=== PATIENT | male | born 1955 | race Caucasian/White ===

== ENCOUNTER 2017-10-02 15:24 | Observation (INO) ==
--- NOTE | 2017-10-02 15:49 | Emergency Department Note ---
Disposition Clinical Impression: Elevated troponin, End stage renal disease on dialysis, Pericardial effusion Chest pain Qualifiers: Chest pain type: precordial pain Qualified Code(s): R07.2 - Precordial pain Pericarditis Qualifiers: Pericarditis type: unspecified type Chronicity: acute Qualified Code(s): I30.9 - Acute pericarditis, unspecified Disposition: Admitted As Inpatient Condition: Fair Referrals: Reji Diaz DO [Primary Care Provider] - Forms: ED Satisfaction Letter Time of Disposition: 20:46 Chest Pain HPI - General Chief Complaint: ED Chest Pain Stated Complaint: Chest Pain Time Seen by Provider: 10/02/17 15:37 Source: patient, family Limitations: no limitations Vital Signs Reviewed: Yes Nursing Notes Reviewed: Yes - History of Present Illness HPI Narrative: 62-year-old male presents ED because of chest pain. He has had chest pain for the past 2 days that worsened today. Pain is worsened with deep breathing. Unable to determine of exertion worsens pain. Does complain of dyspnea as well as frequent episodes of diaphoresis. He has had low-grade fever over the past couple days. No productive cough. No dysuria. No abdominal pain. Has history of renal failure and prior kidney transplant with the transplant kidney has since been removed due to failure. He has a history of congestive heart failure as well as previous pericardial effusions and it sounds like he may have had a pericardiocentesis previously at [facility]. He had heart catheterization about 10 years ago prior to his kidney transplant. At that time there was minor coronary disease. Pt complaint: chest pain Onset (ago): day(s) Duration: constant Onset: during rest Pain Location: substernal Severity: moderate Severity scale (1-10): 10 Quality: sharp Pain Radiation: none Improves with: nothing Worsens with: inspiration Associated symptoms: Reports: nausea, diaphoresis, dyspnea Treatments prior to arrival chest pain: none - Related Data Home Medications Medication Instructions Recorded Confirmed Ascorbic Acid [Vitamin C] 1,000 mg PO DAILY 10/02/17 10/02/17 Cholecalciferol (D-3) [Vitamin D] 1,000 unit PO DAILY 10/02/17 10/02/17 Ferrous Sulfate [Iron] 325 mg PO DAILY 10/02/17 10/02/17 Insulin Glargine,Hum.rec.anlog 4 unit SQ HS 10/02/17 10/02/17 [Lantus Solostar] Metoprolol Tartrate 50 mg PO BID 10/02/17 10/02/17 NIFEdipine [Nifedipine ER] 30 mg PO DAILY 10/02/17 10/02/17 OxyCODONE/APAP 7.5/325 [Percocet 1 tab PO Q6HR PRN 10/02/17 10/02/17 7.5/325 MG] Pantoprazole Sodium 40 mg PO DAILY 10/02/17 10/02/17 Trazodone HCl 100 mg PO HS 10/02/17 10/02/17 Allergies Allergy/AdvReac Type Severity Reaction Status Date / Time aspirin [ASA] AdvReac Anxiety Verified 10/02/17 17:39 All systems ED: reviewed and negative except as stated. Constitutional: Reports: fever. Denies: chills Cardiovascular: Reports: chest pain Respiratory: Reports: dyspnea. Denies: wheezes Gastrointestinal: Denies: vomiting, diarrhea Genitourinary: Denies: urgency, dysuria Musculoskeletal: Denies: back pain Neurological: Denies: headache, weakness Chest Pain PMH - Past Medical History Medical history: Reports: CVA, diabetes, dialysis, GERD, hypertension, myocardial infarction Psychiatric history: Reports: no psych history - Social History Smoking Status: Never smoker Alcohol use: Reports: none Drug use: Reports: none Physical Exam - General Limitations: no limitations General appearance: alert - Head Head exam: atraumatic, normocephalic - Eye Eye exam: Present: normal appearance - ENT ENT exam: normal exam, normal oropharynx - Neck Neck exam: Present: normal inspection - Chest Chest inspection: Present: symmetric chest wall rise. Absent: tenderness - Respiratory Respiratory exam: Present: normal lung sounds bilaterally. Absent: respiratory distress - Cardiovascular Cardiovascular exam: Present: tachycardia, systolic murmur - Abdominal Exam Abdominal exam: Present: soft, Non-Tender - Extremities Exam Extremities exam: Present: other (Flexion contracture of his left wrist) - Expanded Lower Extremity Exam Neurovascular/Tendon exam: Present: normal capillary refill - Back Exam Back exam: Absent: CVA tenderness (R), CVA tenderness (L) - Neurological Exam Neurological exam: Present: alert, oriented X3 - Psychiatric Psychiatric exam: Present: normal affect - Skin Skin exam: Present: warm, dry Course - Reevaluation(s) Reevaluation #1: Initial EKG does have some mild ST elevation in inferior leads that may be secondary to acute inferior wall infarction. There are no reciprocal changes. His clinical story is certainly concerning given the nature of his chest pain with associated dyspnea and diaphoresis. EKG is being sent to database programmer and awaiting call back. Patient lists an allergy to aspirin but he says it just makes him feel anxious. He denies any associated rash, respiratory distress or airway swelling so we will proceed with aspirin. Time: 15:47 Reevaluation #2: Patient was seen in the ED by interventional cardiology. At this point his clinical picture seems more consistent with pericarditis. However, he does have ongoing tachycardia with a d-dimer greater than 2000 and a history of PE. We will proceed with CT of the chest to rule out pulmonary was not. Troponin is only minimally elevated and likely secondary to his chronic renal failure. Echocardiogram shows normal wall motion without any areas of hypokinesis. No evidence of RV strain and no diastolic collapse. There is moderate sized pericardial effusion. Once the PE study is completed, and he will be admitted for further evaluation and serial troponins. The high probability of a clinically significant, sudden or life threatening deterioration of the [cardiopulmonary] system(s) required my full and direct attention, intervention and personal management. The aggregate critical care time was [35] minutes. This time is in addition to time spent performing reported procedures but includes the following: [x] Data Review and interpretation [x] Patient assessment and monitoring of vital signs [x] Documentation [x] Medication orders and management Time: 17:50 Reevaluation #3: CTA was negative for pulmonary embolus. Discussed with Dr. Morgan to admit Time: 20:38 Vital Signs Temperature 99.4 F 10/02/17 15:29 Pulse Rate 114 10/02/17 15:29 Respiratory Rate 16 10/02/17 15:29 Blood Pressure 171/72 10/02/17 15:29 O2 Sat by Pulse Oximetry 94 10/02/17 15:29 Temperature 99.4 F 10/02/17 15:29 Pulse Rate 84 10/02/17 20:35 Respiratory Rate 16 10/02/17 20:35 Blood Pressure 116/67 10/02/17 20:35 O2 Sat by Pulse Oximetry 97 10/02/17 20:35 Oxygen Delivery Oxygen Delivery Room Air Chest Pain - Lab Data Result diagrams: 10/02/17 15:45 10/02/17 15:45 Lab Results 10/02/17 10/02/17 10/02/17 Range/Units 15:45 15:45 15:45 WBC 11.1 (4.3-11.1) K/mcL RBC 4.23 (4.19-5.50) M/mcL Hgb 12.7 L (12.9-16.9) g/dL Hct 40.0 (37.5-50.1) % MCV 94.6 (83.0-100.0) fL MCH 30.0 (28.0-33.3) pg MCHC 31.8 (31.6-35.5) g/dL RDW 16.3 H (11.5-14.5) % Plt Count 185 (140-400) K/mcL MPV 9.5 (9.4-12.4) fL Immature Gran % 0.9 (0-4) % Seg Neutrophils % 81.2 % Lymphocytes % 7.9 % Monocytes % 9.7 % Eosinophils % 0.1 % Basophils % 0.2 % Neutrophils # 9.1 H (1.6-8.9) K/mcL Lymphocytes # 0.9 (0.6-4.6) K/mcL Monocytes # 1.1 (0.0-1.3) K/mcL Eosinophils # 0.0 (0.0-0.6) K/mcL Basophils # 0.0 (0.0-0.2) K/mcL ESR (0-10) mm/hr D-Dimer 2020 H (0-500) ng/mLFEU Sodium 135 L (136-145) mEq/L Potassium 4.2 (3.5-5.1) mEq/L Chloride 89 L (98-107) mEq/L Carbon Dioxide 31 H (23-29) mEq/L BUN 20 (8-23) mg/dL Creatinine 4.96 H (0.70-1.30) mg/dL Est GFR ( Amer) 15 L (> 60) Est GFR (Non-Af Amer) 12 L (> 60) BUN/Creatinine Ratio 4 L (6-26) Glucose 233 H (70-105) mg/dL Calculated Osmolality 290 (280-300) Calcium 10.0 (8.6-10.3) mg/dL Troponin I 0.06 H* (< 0.04) ng/mL 10/02/17 Range/Units 15:45 WBC (4.3-11.1) K/mcL RBC (4.19-5.50) M/mcL Hgb (12.9-16.9) g/dL Hct (37.5-50.1) % MCV (83.0-100.0) fL MCH (28.0-33.3) pg MCHC (31.6-35.5) g/dL RDW (11.5-14.5) % Plt Count (140-400) K/mcL MPV (9.4-12.4) fL Immature Gran % (0-4) % Seg Neutrophils % % Lymphocytes % % Monocytes % % Eosinophils % % Basophils % % Neutrophils # (1.6-8.9) K/mcL Lymphocytes # (0.6-4.6) K/mcL Monocytes # (0.0-1.3) K/mcL Eosinophils # (0.0-0.6) K/mcL Basophils # (0.0-0.2) K/mcL ESR 122 H (0-10) mm/hr D-Dimer (0-500) ng/mLFEU Sodium (136-145) mEq/L Potassium (3.5-5.1) mEq/L Chloride (98-107) mEq/L Carbon Dioxide (23-29) mEq/L BUN (8-23) mg/dL Creatinine (0.70-1.30) mg/dL Est GFR ( Amer) (> 60) Est GFR (Non-Af Amer) (> 60) BUN/Creatinine Ratio (6-26) Glucose (70-105) mg/dL Calculated Osmolality (280-300) Calcium (8.6-10.3) mg/dL Troponin I (< 0.04) ng/mL - EKG Data EKG attestation: Yes I reviewed and interpreted this EKG. EKG results narrative: Sinus tachycardia with a rate of 110. Electrical indices are within normal limits. [place] is normal. There is less than 1 mm elevation in leads 2 and aVF. There is mild. Depression in inferior leads and CT elevation in aVR. Findings may be secondary to acute myocardial injury versus pericarditis Repeat second EKG ; sinus tachycardia with a rate of 113. [place] is normal. Electrical indices within normal limits. There is ST elevation of the inferior leads without reciprocal abdomen was. There is CT elevation in aVR and CT depression of inferior lateral leads consistent with pericarditis.
[2017-10-02] MEDS ORDERED: Aspirin 81 MG TAB.CHEW PO STA (15:51)
[2017-10-02] MEDS ORDERED: Nitroglycerin 0.4 MG TAB.SUBL SL PRN (15:54)
[2017-10-02 16:07] LABS: Basophils % 0.2 %; Eosinophils % 0.1 %; Hemoglobin 12.7 g/dL (12.9-16.9); Immature Granulocytes % 0.9 % (0-4); Lymphocytes # 0.9 K/mcL (0.6-4.6); Lymphocytes % 7.9 %; Mean Corpuscular HGB Conc 31.8 g/dL (31.6-35.5); Mean Corpuscular Volume 94.6 fL (83.0-100.0); Mean Platelet Volume 9.5 fL (9.4-12.4); Monocytes # 1.1 K/mcL (0.0-1.3); Monocytes % 9.7 %; Neutrophils # 9.1 K/mcL (1.6-8.9); Platelet Count 185 K/mcL (140-400); Red Blood Count 4.23 M/mcL (4.19-5.50); Red Cell Distribution Width 16.3 % (11.5-14.5); Segmented Neutrophils % 81.2 %
[2017-10-02] MEDS ORDERED: 0.9 % Sodium Chloride 500 ML IVC ONE (16:23)
[2017-10-02 16:24] LABS: Potassium 4.2 mEq/L (3.5-5.1)
[2017-10-02 16:29] LABS: Troponin I 0.06 ng/mL (< 0.04)
[2017-10-02] MEDS ORDERED: Isovue-370 500 ML INFUS..BTL IV ONE (17:10)
--- NOTE | 2017-10-02 21:38 | Internal Med History&Physical ---
Date of Encounter: 10/03/17 Time of Encounter: 21:50 Internal Medicine - H&P: HPI Chief complaint: CP Admitted From: Home Plans for Post Hospital Care: Home History of present illness: Mr. Rivas is a 62 year old male diabetes, hypertension, and ESRD on hemodialysis who presented to the ED with chest pain. Patient states the chest pain began on Saturday and he describes it as sharp in the center of his chest and does not radiate. Pain is alleviated by sitting forward. Blood pressures have been lower than normal over the last couple of weeks and a low grade fever with a tmax of 101.4F. Denies chest pain, coughing, dysphagia, palpitations, and syncope. Upon arrival to the ED, patient's heart rate was 114 and blood pressure was 171/ 72 but vitals normalize throughout ED stay. Labs in the ED showed hemoglobin 12.7 (higher than normal), d-dimer 2020, Troponin 0.06, [id number], carbon dioxide 31, creatinine 4.96 with a GFR 12 Chest x-ray shows cardiomegaly. EKG showed mild ST elevations in the inferior leads and interventional cardiology was consulted and believe this to be due to pericarditis. CTA of chest shows no evidence of PE but does show pericardial effusion 1.3 cm in thickness. Echo today showed EF of 60%, mild aortic stenosis, moderate to severe pulmonary hypertension, small to moderate pericardial effusion present along the inferior lateral segment of the LV, without evidence of tamponade. While in the ED, Patient was given a 500 mL bolus, aspirin, and nitroglycerin. He believes his chest pain did improve with aspirin and nitroglycerin. Patient was admitted to the floor for pericarditis. Past Med Surg Social Fam HX - Past Medical History Medical history: CVA, diabetes, dialysis, GERD, hypertension, myocardial infarction Psychiatric history: no psych history - Past Surgical History Additional surgical history: kidney transplant and removal, fistula YENNY - Social History Smoking Status: Never smoker Alcohol use: none Drug use: none - Family History Father Hx Family Cardiac Disorders: Yes Hx Family Endocrine Disorder: Yes Internal Medicine - H&P: Meds Ascorbic Acid [Vitamin C] 1,000 mg PO DAILY 10/02/17 [History] Cholecalciferol (D-3) [Vitamin D] 1,000 unit PO DAILY 10/02/17 [History] Ferrous Sulfate [Iron] 325 mg PO DAILY 10/02/17 [History] Insulin Glargine,Hum.rec.anlog [Lantus Solostar] 4 unit SQ HS 10/02/17 [History] Metoprolol Tartrate 50 mg PO BID 10/02/17 [History] NIFEdipine [Nifedipine ER] 30 mg PO DAILY 10/02/17 [History] OxyCODONE/APAP 7.5/325 [Percocet 7.5/325 MG] 1 tab PO Q6HR PRN 10/02/17 [History ] Pantoprazole Sodium 40 mg PO DAILY 10/02/17 [History] Trazodone HCl 100 mg PO HS 10/02/17 [History] 3 Allergy/AdvReac Type Severity Reaction Status Date / Time aspirin [ASA] AdvReac Anxiety Verified 10/02/17 17:39 All Systems PM: A 10-system review of systems was performed and is negative for pertinent findings except as documented above in the HPI. - Constitutional Vitals: Temp Pulse Resp BP Pulse Ox 99.4 F 84 16 116/67 97 10/02/17 15:29 10/02/17 20:35 10/02/17 20:35 10/02/17 20:35 10/02/17 20:35 Exam: Constitutional: Alert, in no acute distress Head: Normocephalic, atraumatic, right ptosis Heart: murmur at the aortic, Normal, regular rate and rhythm, no murmurs Lungs: wheezing present, Clear to auscultation, no wheezes, rales, or rhonchi Abdomen:tenderness in the epigastric region, Soft, nondistended, nontender, bowel sounds present and normal, no guarding or rigidity. Extremities: left upper and lower extremity strength 0/5, right upper and lower extremities 5/5. No edema, No clubbing, radial pulse +2/4, capillary refill < 2sec. Skin: Skin warm and dry, no lesions, no rashes, no jaundice Neurologic: Cranial nerves II through XII grossly intact Psych: Cooperative with exam, good eye contact, cognitive function intact, speech clear, thought process logical, and goal directed Internal Med - H&P Results - Labs CBC & Chem 7: 10/02/17 15:45 10/02/17 15:45 - Assessment and plan (1) Chest pain Current Visit: Yes Status: Acute Assessment and plan: Echo showed pericardial effusion. Cardiolothoracic intervention believes the EKG changes is related to this and not to ischemic changes. Troponin most likely elevated 2/2 to ESRD. Will continue to monitor blood pressures remain stable. Plan: - vitals Q4H - continue telemetry - consider steroids - oxygen support if necessary - trend troponins -consult to cardiology for management of pericarditis Qualifiers: Chest pain type: precordial pain Qualified Code(s): R07.2 - Precordial pain (2) Pericardial effusion Current Visit: Yes Status: Acute Assessment and plan: See plan above. Intervention cardiology consulted in the ED. Will consult cardiology for further recommendations for treatment. ASA and nitro were reported to help relieve chest pain. Patient is ESRD on hemodialysis therefore NSAIDs and colchicine could be initiated. Steroids are currently not recommended as they increase the recurrence rate of pericarditis (http:// circ.ahajournals.org/content/118/6/667). Will allow cardiology to make final recommendations for treatment. (3) Elevated troponin Current Visit: Yes Status: Acute Assessment and plan: Cardiothoracic surgery consultation and believes this is secondary to end-stage renal disease and not ischemic. We will continue to trend troponins. (4) End stage renal disease on dialysis Current Visit: Yes Status: Acute Assessment and plan: Creatinine 4.96, previous 1.98 on 05/17/17. GRF 12. Patient goes to hemodialysis on Saturday and access is through a left AV fistula. 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 He states that today he only was able to stay for 2.5 hrs as his chest was hurting too much to complete it. He is anuric. Plan: - consult nephrology for hemidialysis (5) Metabolic acidosis Current Visit: Yes Status: Acute Assessment and plan: metabolic acidosis as patient has ESRD and inability to excrete ammonia as he has anuria, will continue dialysis. Repeat BMP in the AM. (6) Anemia in chronic kidney disease, on chronic dialysis Current Visit: Yes Status: Acute Assessment and plan: Hemoglobin=12.7, patient is on iron supplements. Will check levels. Continue home dose of iron for now. (7) Chronic kidney disease-mineral and bone disorder Current Visit: Yes Status: Acute Assessment and plan: Will obtain labs for vit D, PTH, Iron panel, and Ferritin. Continue home dose of iron and vitamin d supplements. (8) DVT prophylaxis Current Visit: Yes Status: Acute Assessment and plan: Heparin SQ - Time Spent With Patient Total time spent is greater than 50% in coordination of care (as documented) at patient's floor/unit and/or counseling patient:
[2017-10-02] MEDS ORDERED: Naloxone 0.4 MG/ML INJ IVP PRN (22:59)
[2017-10-03] MEDS ORDERED: *HR* Dextrose 50 % in Water (Syg) 50 ML SYRINGE IVP PRN (00:27)
[2017-10-03] MEDS ORDERED: Dextrose Gel 15 GM/37.5 ML TUBE PO PRN ×2 (00:27)
[2017-10-03] MEDS ORDERED: D5% in Water 1,000 ML IVC PRN (00:27)
[2017-10-03] MEDS: Insulin LISPRO 300 UNITS/3 ML VIAL SQ SCH ×5 (00:37→20:29)
[2017-10-03] MEDS: traZODone 50 MG TABLET PO SCH ×2 (00:39→21:30)
[2017-10-03 01:36] LABS: % Iron Saturation 15 % (20-55); Iron 19 mcg/dL (65-175); Transferrin 92 mg/dL (203-362)
[2017-10-03 01:57] LABS: Ferritin > 1500 ng/mL (20-250)
[2017-10-03] MEDS: *HR* Heparin 5,000 UNIT/ML VIAL SQ SCH ×2 (05:31→17:18)
[2017-10-03 06:22] LABS: Hematocrit 32.1 % (37.5-50.1); Mean Corpuscular HGB Conc 31.2 g/dL (31.6-35.5); Mean Corpuscular Hemoglobin 29.7 pg (28.0-33.3); Mean Corpuscular Volume 95.3 fL (83.0-100.0); Mean Platelet Volume 9.6 fL (9.4-12.4); Platelet Count 152 K/mcL (140-400); Red Blood Count 3.37 M/mcL (4.19-5.50); Red Cell Distribution Width 15.9 % (11.5-14.5)
[2017-10-03 06:42] LABS: Calcium 9.1 mg/dL (8.6-10.3); Magnesium 1.9 mg/dL (1.6-2.6); Phosphorous 4.8 mg/dL (2.7-4.5); Potassium 4.2 mEq/L (3.5-5.1)
[2017-10-03] MEDS: NIFEdipine XL (24 HR) 30 MG TAB.ER.24 PO SCH (07:32)
[2017-10-03] MEDS: Cholecalciferol (D-3) 1,000 UNIT TABLET PO SCH (07:32)
[2017-10-03] MEDS: *HR* OxyCODONE/APAP 7.5/325 TABLET PO PRN (07:37)
--- NOTE | 2017-10-03 10:04 | Cardiology Consult Note ---
<Minh Valencia - Last Filed: 10/03/17 10:41> Date of Encounter: 10/03/17 Time of Encounter: 09:58 Assessment and Plan (1) Pericarditis Current Visit: Yes Status: Acute - Pericarditis with unknown etiology. Likely related to ESRD vs idiopathic vs viral - Patient reports no URI symptoms but has had low grade fevers and one episode of vomiting - HPI consistent with Pericarditis and EKG findings show ST elevation/IA depression in inferior leads with IA elevation in AVR which is consistent with pericarditis - Improvement of symptoms with aspirin in ED. - ESR elevated at 122, Troponins (0.06/0.06/0.04) likely reflect myocardial involvement from pericarditis in the setting of ESRD - Pericardial effusion measuring 1.3 cm on CTA and Echocardiogram. - No evidence of tamponade on echo, hemodynamically stable. Plan - Continue supportive therapy with aspirin 650mg TID (1-2 weeks as symptoms persist) , colchicine 0.6 mg BID (3 months). - Monitor for any signs/ worsening of symptoms indicative of tamponade or further myocardial involvement (2) Pericardial effusion Current Visit: Yes Status: Acute - as demonstrated on both CTA and echocardiogram on 10/02/17 - Likely secondary to pericarditis as above - Hemodynamically stable, no evidence of tamponade. - Supportive care. (3) Chest pain Current Visit: Yes Status: Acute - Secondary to pericarditis as above. - Doubtful ACS etiology (4) Elevated troponin Current Visit: Yes Status: Acute As above. Discussion w patient/family: The assessment and plan as outlined above was discussed with the patient and/or family members who expressed understanding and agreement. All questions were answered. Thank you for involving us in the care of your patient. Please call with any questions. History of Present Illness Consult date: 10/03/17 Requesting physician: Chelsie Leung Consult reason: pericarditis Chief complaint: Chest pain History of present illness: Mr. Rivas is a 62 year old male with past medical history of CAD, diabetes, hypertension, ESRD on dialysis, CVA, GERD who presented to emergency room with complaint of chest pain. Patient states that this chest pain again Saturday morning when he awoke. He describes the pain as sharp in nature and located substernally. He denies any radiation or exertional component to this pain. He does state that the pain is mildly relieved when he is sitting up and leaning forward. He also states he has had intermittent fevers over the last week and a half and diaphoresis associated with this. He denies any symptoms of shortness of breath, numbness, tingling, weakness, he did admit to vomiting one time a few days ago. He also states that his symptoms were partially relieved with aspirin and nitroglycerin he was given emergency department. Previous cardiac workup includes echocardiogram obtained 10/02/17 showing ejection fraction of 60%, mild aortic stenosis, moderate to severe pulmonary hypertension, small to moderate pericardial effusion in the inferior lateral left ventricle. No evidence of On Imaging. Mild Diastolic Dysfunction. CTA performed emergency department did not show any evidence of pulmonary embolism but did show again a pericardial effusion measuring 1.3 cm the inferior lateral wall. EKG obtained in emergency department showed sinus tachycardia with a rate of 113, IA depressions with reciprocal ST elevation in leads 2, 3, aVF as well as IA elevation in aVR. These findings were discussed with on-call interventional team and thought to be consistent with pericarditis and not ACS. Past Med Surg Social Fam HX - Past Medical History Medical history: CVA, diabetes, dialysis, GERD, hypertension, myocardial infarction Psychiatric history: no psych history - Past Surgical History Additional surgical history: kidney transplant and removal, fistula YENNY - Social History Smoking Status: Never smoker Smokeless Tobacco Status: No Alcohol use: none Drug use: none - Family History Father Hx Family Cardiac Disorders: Yes Hx Family Endocrine Disorder: Yes Medications and Allergies Ascorbic Acid [Vitamin C] 1,000 mg PO DAILY 10/02/17 [History] Cholecalciferol (D-3) [Vitamin D] 1,000 unit PO DAILY 10/02/17 [History] Ferrous Sulfate [Iron] 325 mg PO DAILY 10/02/17 [History] Insulin Glargine,Hum.rec.anlog [Lantus Solostar] 4 unit SQ HS 10/02/17 [History] Metoprolol Tartrate 50 mg PO BID 10/02/17 [History] NIFEdipine [Nifedipine ER] 30 mg PO DAILY 10/02/17 [History] OxyCODONE/APAP 7.5/325 [Percocet 7.5/325 MG] 1 tab PO Q6HR PRN 10/02/17 [History ] Pantoprazole Sodium 40 mg PO DAILY 10/02/17 [History] Trazodone HCl 100 mg PO HS 10/02/17 [History] 3 Allergy/AdvReac Type Severity Reaction Status Date / Time aspirin [ASA] AdvReac Anxiety Verified 10/02/17 17:39 All Systems Review: The remainder of the systems were reviewed and are negative - Constitutional Constitutional: fever(s), night sweats, no chills - Cardiovascular Cardiovascular: chest pain at rest, no chest pain with exertion, no dyspnea at rest, no dyspnea on exertion, no irregular heart rhythm, no leg edema, no palpitations, no syncope - Respiratory Respiratory: no cough, no dyspnea, no hemoptysis - Gastrointestinal Gastrointestinal: nausea - Integumentary Integumentary: no rash - Neurological Neurological: no numbness, no syncope, no tingling Physical Examination Vital Signs, Last 4 Hours Temp Pulse Resp BP Pulse Ox 10/03/17 06:48 98.2 F 80 16 117/55 93 General: Conversant, No Apparent Distress HEENT: Atraumatic, Normocephaly, Mucus Membranes Moist Neck: No JVD, Normal carotid pulses Cardiac: Reg Rate and Rhythm, Normal S1 and S2, Other (Friction rub present ) Lungs: Normal Breath Sounds, No Wheeze, Rales, Rhonchi Neuro: Alert and responsive, No focal deficits noted Abdomen: Soft, Non-Tender Skin: No rashes noted on visualized skin Musculoskeletal: No Chest Wall Tenderness Extremities: No Clubbing, No Cyanosis, No Edema, Normal Pulses Results 10/03/17 06:09 10/03/17 06:09 Lab Results 10/03/17 10/03/17 10/03/17 00:34 06:09 06:09 WBC 10.6 Hgb 10.0 L D Hct 32.1 L Plt Count 152 Sodium 132 L Potassium 4.2 Chloride 92 L Carbon Dioxide 29 BUN 26 H Creatinine 5.99 H Glucose 153 H Calcium 9.1 Magnesium 1.9 Troponin I 0.06 H* 10/03/17 06:09 WBC Hgb Hct Plt Count Sodium Potassium Chloride Carbon Dioxide BUN Creatinine Glucose Calcium Magnesium Troponin I 0.04 H* Consult Discharge Plan - Plan Referrals: Reji Diaz DO [Primary Care Provider] - <Osbaldo Jorgensen - Last Filed: 10/03/17 12:09> Date of Encounter: 10/03/17 - Attending Attestation I examined this patient and my medical decision-making was reviewed with the Resident Physician. I agree with the documented findings, disposition and treatment plan as described except to the extent set forth below. Clinical history and EKG consistent with pericarditis. Would recommend treatment with NSAIDS and colchicine. Will follow echo. Assessment and Plan Discussion w patient/family: The assessment and plan as outlined above was discussed with the patient and/or family members who expressed understanding and agreement. All questions were answered. Thank you for involving us in the care of your patient. Please call with any questions. History of Present Illness History of present illness: Mr. Rivas is a 62 year old male All Systems Review: The remainder of the systems were reviewed and are negative Physical Examination Vital Signs, Last 4 Hours Temp Pulse Resp BP Pulse Ox 10/03/17 11:21 97.8 F 67 16 91/46 95 Results 10/03/17 06:09 10/03/17 06:09 Lab Results 10/03/17 10/03/17 10/03/17 00:34 06:09 06:09 WBC 10.6 Hgb 10.0 L D Hct 32.1 L Plt Count 152 Sodium 132 L Potassium 4.2 Chloride 92 L Carbon Dioxide 29 BUN 26 H Creatinine 5.99 H Glucose 153 H Calcium 9.1 Magnesium 1.9 Troponin I 0.06 H* 10/03/17 06:09 WBC Hgb Hct Plt Count Sodium Potassium Chloride Carbon Dioxide BUN Creatinine Glucose Calcium Magnesium Troponin I 0.04 H*
[2017-10-03] MEDS: Colchicine 0.6 MG TABLET PO SCH ×2 (10:24→20:29)
[2017-10-03] MEDS: Aspirin 325 MG TABLET PO SCH ×3 (10:24→20:29)
--- NOTE | 2017-10-03 10:29 | Internal Med Progress Note ---
Date of Encounter: 10/03/17 Time of Encounter: 10:29 - Assessment and plan (1) Pericarditis Current Visit: Yes Status: Acute Assessment and plan: Etiology unknown EKG with typical pericarditis changes-ST elevation/NY depression in inferior leads with [place] elevation in AVR Slight elevated troponin 0.06 Associated pericardial effusion on ECHO, no tamponade noted Continue ASA and Colchicine, cardio eval noted Qualifiers: Pericarditis type: unspecified type Chronicity: acute Qualified Code(s): I30.9 - Acute pericarditis, unspecified (2) Elevated troponin Current Visit: Yes Status: Acute Assessment and plan: As in pericarditis Possibly myocardial involvement, however, patient is also ESRD patient (3) Pericardial effusion Current Visit: Yes Status: Acute Assessment and plan: ECHO noted for small to moderate effusion , no evidence of tamponade, hemodyanmically stable Possibly multifactorial from pericarditis and renal disease Continue to monitor (4) Chronic anemia Current Visit: Yes Status: Chronic Assessment and plan: Hemoglobin=12.7 on admission, now at 10, at baseline Continue to monitor (5) End stage renal disease on dialysis Current Visit: Yes Status: Acute Assessment and plan: HD schedule per renal Continue home meds (6) HTN (hypertension) Current Visit: Yes Status: Chronic Assessment and plan: blood pressure low normal Decrease lopressor to 25 BID Continue to monitor Qualifiers: Hypertension type: essential hypertension Qualified Code(s): I10 - Essential (primary) hypertension (7) Diabetes mellitus Current Visit: Yes Status: Chronic Assessment and plan: on sliding scale, continue to monitor Qualifiers: Diabetes mellitus type: type 2 Diabetes mellitus mcc insulin use: with mcc use Diabetes mellitus complication status: with kidney complications Diabetes mellitus complication detail: with chronic kidney disease Chronic kidney disease stage: on chronic dialysis Qualified Code(s) : E11.22 - Type 2 diabetes mellitus with diabetic chronic kidney disease; N18.6 - End stage renal disease; Z79.4 - [facility] (current) use of insulin; Z99.2 - Dependence on renal dialysis - Time Spent With Patient Total time spent is greater than 50% in coordination of care (as documented) at patient's floor/unit and/or counseling patient: - Subjective Interval history: [facility] 62 M with ESRD, on observation for work up and management of acute pericarditis Patient reports improvement in chest pain Cardiology has been consulted and is evaluating Nephrology following for routine HD - Constitutional Vitals: Temp Pulse Resp BP Pulse Ox 98.2 F 80 16 117/55 93 10/03/17 06:48 10/03/17 06:48 10/03/17 06:48 10/03/17 06:48 10/03/17 06:48 General appearance: Present: A&O X 3, pleasant, no acute distress - Head Head exam: Present: atraumatic, normocephalic - Eye Eye exam: Present: PERRL, conjuntiva pink, sclera anicteric Pupils: Present: PERRL - Neck Neck exam general surgery: Present: supple, trachea midline. Absent: lymphadenopathy - Respiratory Respiratory exam: Present: CTAB. Absent: accessory muscle use, rales, rhonchi, wheezes - Cardiovascular Cardiovascular exam: Present: RRR, rubs, +S1, +S2. Absent: diastolic murmur, gallop, systolic murmur - GI/Abdominal GI/Abdominal exam: Present: normal bowel sounds, soft, no peritoneal signs. Absent: distended, tenderness - Extremities Exam Extremities exam: Present: warm, radial pulses palpable and symmetrical. Absent : calf tenderness, cyanotic, pedal edema - Neurological Exam Neurological exam: Present: alert, CN II-XII intact, oriented X3, no focal deficits. Absent: pronater drift, facial droop, speech deficit - Skin Skin exam: Present: dry, intact Internal Medicine: Result - Labs CBC & Chem 7: 10/03/17 06:09 10/03/17 06:09 Labs: Short CBC 10/03/17 Range/Units 06:09 WBC 10.6 (4.3-11.1) K/mcL Hgb 10.0 L D (12.9-16.9) g/dL Hct 32.1 L (37.5-50.1) % Plt Count 152 (140-400) K/mcL BMP 10/03/17 06:09 Sodium 132 L Potassium 4.2 Chloride 92 L Carbon Dioxide 29 BUN 26 H Creatinine 5.99 H Glucose 153 H Calcium 9.1 Cardiac Enzymes 10/03/17 10/03/17 Range/Units 00:34 06:09 Troponin I 0.06 H* 0.04 H* (< 0.04) ng/mL - ABG Interpretation ABG results: PT/INR, D-dimer D-Dimer 2020 ng/mLFEU (0-500) H 10/02/17 15:45 Consult Discharge Plan - Plan Referrals: Reji Diaz DO [Primary Care Provider] -
[2017-10-03 10:44] LABS: Hepatitis B Surface Antigen Nonreactive (Nonreactive)
--- NOTE | 2017-10-03 10:50 | Nephrology Consult Note ---
Date of Encounter: 10/03/17 Time of Encounter: 09:10 Assessment and Plan (1) End stage renal disease on dialysis Current Visit: Yes Status: Acute Pericardial effusion. Cardiology on board. ESRD- no immediate need for HD today. HD tomorrow, keeping MWF schedule. History of Present Illness - Reason for Consult end stage renal disease - History of Present Illness Mr. Rivas is a 62 year old male with ESRD who dialyzes at [facility] on MWF via left brachiocephalic AVF under Dr. Johnson at [facility] in [place]. Last dialysis yesterday, though came off at 2.5 hours due to chest pain for past two days that worsened with deep breathing that made him present to ER. Other PMH- GHF, pulm embolus, pericardial effusion with pericardial thorocentesis, CVA, diabetes, GERD, VT. EKG initial mild ST elevation. Troponin minimallly elevated. D-Dimer>2000. Evaluated by interventional cardiology. CXR- cardiomegaly. Chest CTA-small to moderate pericardial effusion. ECHO- LVEF 60%, mild , moderate to severe pulmonary hypertension, small to moderate pericardial effusion present along the inferior lateral segment of the LV, without evidence of tamponade. He was given fluid bolus, aspirin and nitroglycerin in ER. ESRD in setting of diabetes and hypertension since 2007. Renal transplant in 2011 that failed in 2013 that patient states was due surgical issue during a hernia repair. At time of consult he is sitting up in chair. States chest discomfort mid sternal, though less discomfort today with deep breaths. Past Med Surg Social Fam HX - Past Medical History Medical history: CVA, diabetes, dialysis, GERD, hypertension, myocardial infarction Psychiatric history: no psych history - Past Surgical History Additional surgical history: kidney transplant and removal, fistula YENNY - Social History Smoking Status: Never smoker Smokeless Tobacco Status: No Alcohol use: none Drug use: none - Family History Father Hx Family Cardiac Disorders: Yes Hx Family Endocrine Disorder: Yes Medications and Allergies Ascorbic Acid [Vitamin C] 1,000 mg PO DAILY 10/02/17 [History] Cholecalciferol (D-3) [Vitamin D] 1,000 unit PO DAILY 10/02/17 [History] Ferrous Sulfate [Iron] 325 mg PO DAILY 10/02/17 [History] Insulin Glargine,Hum.rec.anlog [Lantus Solostar] 4 unit SQ HS 10/02/17 [History] Metoprolol Tartrate 50 mg PO BID 10/02/17 [History] NIFEdipine [Nifedipine ER] 30 mg PO DAILY 10/02/17 [History] OxyCODONE/APAP 7.5/325 [Percocet 7.5/325 MG] 1 tab PO Q6HR PRN 10/02/17 [History ] Pantoprazole Sodium 40 mg PO DAILY 10/02/17 [History] Trazodone HCl 100 mg PO HS 10/02/17 [History] 3 Allergy/AdvReac Type Severity Reaction Status Date / Time aspirin [ASA] AdvReac Anxiety Verified 10/02/17 17:39 Review of Systems All Systems: reviewed and no additional remarkable complaints except as stated Exam - Vital Signs Vital signs: Initial Vital Signs Temp Pulse Resp BP Pulse Ox 99.4 F 114 16 171/72 94 10/02/17 15:29 10/02/17 15:29 10/02/17 15:29 10/02/17 15:29 10/02/17 15:29 Vital Signs - Last 8 Hours Temp Pulse Resp BP Pulse Ox 10/03/17 06:48 98.2 F 80 16 117/55 93 10/03/17 03:19 98.2 F 89 18 144/58 95 Intake and Output 10/02/17 10/03/17 10/03/17 23:59 07:59 15:59 Intake Total 0 / 500 300 / 300 240 / 240 Balance 0 / 500 300 / 300 240 / 240 Intake: Oral 0 / 0 300 / 300 240 / 240 Other: Meal Breakfast Weight 74.106 kg Blood Glucose* 161 137 - General Appearance General appearance: well-developed, well-nourished, appears started age Exam: left hand contracted residual CVA EENT: mucous membranes moist Neck: no JVD Respiratory: clear Cardiology: no edema, regular rate, regular rhythm - Dialysis Access Dialysis Vascular Access: Arteriovenous Fistula thrill: Yes bruit: Yes Additional Comments: left brachiocephalic Gastrointestinal: normoactive bowel sounds, no tenderness Integumentary: no rash Neurologic: alert and oriented x3 Results - Lab Results 10/03/17 06:09 10/03/17 06:09 Most recent lab results Calcium 9.1 mg/dL (8.6-10.3) 10/03/17 06:09 Phosphorus 4.8 mg/dL (2.7-4.5) H 10/03/17 06:09 Magnesium 1.9 mg/dL (1.6-2.6) 10/03/17 06:09 Consult Discharge Plan - Plan Referrals: Reji Diaz DO [Primary Care Provider] -
[2017-10-03] MEDS: Acetaminophen 325 MG TABLET PO PRN ×2 (15:16→21:30)
--- NOTE | 2017-10-03 16:45 | Electrocardiograph Report ---
[address] [place], [place] [address] Test Date: 2017-10-02 Pat Name: Junito Rivas Department: 104 Room: 2A13 Gender: M [employer]: : 1955 Requested By: Nomi Gomez Order Number: [id number] Reading MD: Rocio Renee Measurements Intervals [place] Rate: 113 P: 38 OK: 147 QRS: 14 QRSD: 84 T: 31 QT: 313 QTc: 380 Interpretive Statements SINUS TACHYCARDIA ST ELEVATION, CONSIDER INFERIOR INJURY [MARKED ST ELEVATION W/O NORMALLY INFLECTED T WAVE IN II/aVF] POSSIBLE ACUTE TX Electronically Signed On 10-03-2017 16:44:03 EDT by Rocio Renee
[2017-10-04 00:33] LABS: Hepatitis B Surface Antibody 7.96 mIU/mL
[2017-10-04 04:47] LABS: Basophils % 0.1 %; Eosinophils % 0.2 %; Hematocrit 30.6 % (37.5-50.1); Hemoglobin 9.6 g/dL (12.9-16.9); Immature Granulocytes % 1.3 % (0-4); Lymphocytes # 1.3 K/mcL (0.6-4.6); Lymphocytes % 15.6 %; Mean Corpuscular HGB Conc 31.4 g/dL (31.6-35.5); Mean Corpuscular Hemoglobin 28.8 pg (28.0-33.3); Mean Corpuscular Volume 91.9 fL (83.0-100.0); Mean Platelet Volume 10.1 fL (9.4-12.4); Monocytes # 0.8 K/mcL (0.0-1.3); Neutrophils # 6.2 K/mcL (1.6-8.9); Platelet Count 172 K/mcL (140-400); Red Blood Count 3.33 M/mcL (4.19-5.50); Segmented Neutrophils % 73.8 %
[2017-10-04 05:01] LABS: Calcium 8.8 mg/dL (8.6-10.3); Potassium 4.2 mEq/L (3.5-5.1)
[2017-10-04] MEDS: *HR* Heparin 5,000 UNIT/ML VIAL SQ SCH (06:06)
[2017-10-04] MEDS: Aspirin 325 MG TABLET PO SCH (07:57)
[2017-10-04] MEDS: Cholecalciferol (D-3) 1,000 UNIT TABLET PO SCH (07:57)
[2017-10-04] MEDS: Insulin LISPRO 300 UNITS/3 ML VIAL SQ SCH ×2 (07:57→12:31)
[2017-10-04] MEDS: Colchicine 0.6 MG TABLET PO SCH (07:58)
[2017-10-04] MEDS: *HR* OxyCODONE/APAP 7.5/325 TABLET PO PRN (07:58)
--- NOTE | 2017-10-04 08:39 | Nephrology Progress Note ---
Date of Encounter: 10/04/17 Time of Encounter: 08:20 - Assessment and Plan (1) End stage renal disease on dialysis Current Visit: Yes Status: Acute HD today, keeping MWF schedule. Orders given. Subjective Interval history: Sitting up in bed. States chest pain greatly improved. No ne complaints. Objective - Vital Signs Vital signs: Vital Signs Temp Pulse Resp BP Pulse Ox 10/04/17 06:26 97.5 F L 62 20 120/65 95 10/04/17 03:29 97.8 F 69 17 111/58 94 10/03/17 23:31 98.3 F 74 18 113/46 94 10/03/17 18:32 98.1 F 64 16 96/50 98 10/03/17 15:51 95 10/03/17 15:28 97.8 F 63 13 95/54 88 10/03/17 14:41 100/44 10/03/17 12:04 96/42 10/03/17 11:21 97.8 F 67 16 91/46 95 Intake and Output 10/03/17 10/04/17 10/04/17 23:59 07:59 15:59 Intake Total 240 / 240 0 / 0 Balance 240 / 240 0 / 0 Intake: Oral 240 / 240 0 / 0 Other: Meal Dinner Percent of Meal Consumed 55% Weight 75.6 kg Blood Glucose* 259 177 Patient Weight 10/04/17 23:59 Weight 75.6 kg - General Appearance General appearance: Present: well-developed, well-nourished, appears started age EENT: Present: mucous membranes moist Neck: Present: no JVD Respiratory: Present: clear Cardiology: Present: no edema, regular rate, regular rhythm Dialysis Vascular Access: Arteriovenous Fistula thrill: Yes bruit: Yes Gastrointestinal: Present: normoactive bowel sounds, no tenderness Integumentary: Present: warm and dry Neurologic: Present: alert and oriented x3 - Lab 10/04/17 03:50 10/04/17 03:50 Most recent lab results Calcium 8.8 mg/dL (8.6-10.3) 10/04/17 03:50 Phosphorus 4.8 mg/dL (2.7-4.5) H 10/03/17 06:09 Magnesium 1.9 mg/dL (1.6-2.6) 10/03/17 06:09 Consult Discharge Plan - Plan Referrals: Reji Diaz, [Primary Care Provider] -
[2017-10-04] MEDS ORDERED: 0.9 % Sodium Chloride 250 ML IVC PRN (09:46)
[2017-10-04] MEDS ORDERED: 0.9 % Sodium Chloride 1,000 ML PRIME SCH (10:00)
--- NOTE | 2017-10-04 10:19 | Cardiology Progress Note ---
Addendum entered and electronically signed by Osbaldo Jorgensen MD 10/04/17 10:53: I examined this patient and my medical decision-making was reviewed with the Resident Physician. I agree with the documented findings, disposition and treatment plan as described except to the extent set forth below. Pericarditis fo unknown etiology. would recommend nsaids and colchicine. Repeat echo 2 wks a to assess effusion. Original Note: Date of Encounter: 10/04/17 Time of Encounter: 10:18 Assessment and Plan (1) Pericarditis Current Visit: Yes Status: Acute - Pericarditis with unknown etiology. Likely related to ESRD vs idiopathic vs viral - Patient reports no URI symptoms but has had low grade fevers and one episode of vomiting - HPI consistent with Pericarditis and EKG findings show ST elevation/[place] depression in inferior leads with [place] elevation in AVR which is consistent with pericarditis - Improvement of symptoms with aspirin in ED. - ESR elevated at 122, Troponins (0.06/0.06/0.04) likely reflect myocardial involvement from pericarditis in the setting of ESRD - Pericardial effusion measuring 1.3 cm on CTA and Echocardiogram. - No evidence of tamponade on echo, hemodynamically stable. Plan - Continue supportive therapy with aspirin 650mg TID (1-2 weeks as symptoms persist) , colchicine 0.6 mg BID (3 months). - Monitor for any signs/ worsening of symptoms indicative of tamponade or further myocardial involvement - Chest pain resolved. Qualifiers: Pericarditis type: unspecified type Chronicity: acute Qualified Code(s): I30.9 - Acute pericarditis, unspecified (2) Pericardial effusion Current Visit: Yes Status: Acute - as demonstrated on both CTA and echocardiogram on 10/02/17 - Likely secondary to pericarditis as above - Hemodynamically stable, no evidence of tamponade. - Supportive care. (3) Chest pain Current Visit: Yes Status: Resolved - Secondary to pericarditis as above. - Doubtful ACS etiology Qualifiers: Chest pain type: precordial pain Qualified Code(s): R07.2 - Precordial pain (4) Elevated troponin Current Visit: Yes Status: Acute As above. Discussion w patient/family: The assessment and plan as outlined above was discussed with the patient and/or family members who expressed understanding and agreement. All questions were answered. Thank you for involving us in the care of your patient. Please call with any questions. Subjective Principal diagnosis: pericarditis Interval history: patient seen and examined. Chest pain resolved. No new complaints. States he is doing well and is eager to return home after dialysis Objective Vital Signs, Last 4 Hours Temp Pulse Resp BP Pulse Ox 10/04/17 06:26 97.5 F L 62 20 120/65 95 General: Conversant, No Apparent Distress HEENT: Atraumatic, Normocephaly, Mucus Membranes Moist Neck: No JVD, Normal carotid pulses Cardiac: Reg Rate and Rhythm, Normal S1 and S2, Other Lungs: Normal Breath Sounds, No Wheeze, Rales, Rhonchi Neuro: Alert and responsive, No focal deficits noted Abdomen: Soft, Non-Tender Skin: No rashes noted on visualized skin Musculoskeletal: No Chest Wall Tenderness Extremities: No Clubbing, No Cyanosis, No Edema, Normal Pulses Results 10/04/17 03:50 10/04/17 03:50 Lab Results 10/04/17 10/04/17 03:50 03:50 WBC 8.4 Hgb 9.6 L Hct 30.6 L Plt Count 172 Sodium 133 L Potassium 4.2 Chloride 92 L Carbon Dioxide 26 BUN 39 H Creatinine 7.55 H Glucose 225 H Calcium 8.8 Consult Discharge Plan - Plan Referrals: Reji Diaz DO [Primary Care Provider] -
--- NOTE | 2017-10-04 12:02 | Discharge Summary ---
- NOTES TO OUTPATIENT PROVIDER Notes to Outpatient Provider: Patient was admitted and managed for acute pericarditis. Discharged home on aspirin 3 times a day as well as colchicine twice a day. Patient is known end-stage renal disease on hemodialysis. Has an appointment with his own primary care physician Saturday10/10/2017. Recommend repeat echocardiogram in 2 weeks to assess pericardial effusion, follow up with cardilogy as well Orders not resulted at time of discharge: Pending orders 10/03/17 00:34 Vitamin D 1,25 Dihydroxy AM 0400 Date of Encounter: 10/04/17 Time of Encounter: 12:00 - Discharge Diagnosis (1) Chest pain Priority: Primary Status: Resolved Qualifiers: Chest pain type: precordial pain Qualified Code(s): R07.2 - Precordial pain (2) Pericarditis Priority: Primary Status: Acute Qualifiers: Pericarditis type: unspecified type Chronicity: acute Qualified Code(s): I30.9 - Acute pericarditis, unspecified (3) Elevated troponin Priority: Primary Status: Acute (4) Pericardial effusion Priority: Primary Status: Acute (5) Chronic kidney disease-mineral and bone disorder Priority: Secondary Status: Chronic (6) End stage renal disease on dialysis Priority: Secondary Status: Chronic Hospital course: Mr. Rivas is a 62 year old male with past medical history of CAD, diabetes, hypertension, ESRD on dialysis, CVA, GERD who presented to emergency room with complaint of chest pain. Patient stated that this chest pain again Saturday morning when he awoke. He describes the pain as sharp in nature and located substernally. He denied any radiation or exertional component to this pain. He does state that the pain is mildly relieved when he is sitting up and leaning forward. He also states he has had intermittent fevers over the last week and a half and diaphoresis associated with this. He denied any symptoms of shortness of breath, numbness, tingling, weakness, he did admit to vomiting one time a few days ago. He also states that his symptoms were partially relieved with aspirin and nitroglycerin he was given emergency department. Work up in ER revealed chronic anemia, chem at baseline, ESR elevated at 122, Troponins 0.06/0.06/0.04, echocardiogram obtained 10/02/17 showing ejection fraction of 60%, mild aortic stenosis, moderate to severe pulmonary hypertension , small to moderate pericardial effusion in the inferior lateral left ventricle. No evidence of On Imaging. Mild Diastolic Dysfunction. CTA performed emergency department did not show any evidence of pulmonary embolism but did show again a pericardial effusion measuring 1.3 cm the inferior lateral wall. EKG obtained in emergency department showed sinus tachycardia with a rate of 113, NE depressions with reciprocal ST elevation in leads 2, 3, aVF as well as [place] elevation in aVR. These findings were discussed with on-call interventional team and thought to be consistent with pericarditis and not ACS. Patient was started on high dose ASA and placed on observation status for further cardiology eval and management of acute pericarditis of unknwown etiology There were no clinical or ECHO findings of tamponade Cardology recommended adding colichicine, patient is on HD He was seen an examined at bedside this mrn, chest pain has resolved and patient has no new complains, exam was unremarkable He is recommended to follow up with his PCP, who has an appointment with him 10/10, cardiology also recommends repeat ECHO in 2 weeks to asswss pericardial effusion Patient will be discharged home in stable condition after HD Discharge discussed with: patient, nurse, social work - Time Spent with Patient Total time spent providing and/or coordinating discharge services: Greater than 30 minutes - Discharge Medications Prescriptions: Aspirin [Aspirin EC] 650 mg PO TID #30 tablet. Colchicine [Colcrys] 0.6 mg PO BID #20 tablet Home Medications: Ascorbic Acid [Vitamin C] 1,000 mg PO DAILY 10/02/17 [History] Cholecalciferol (D-3) [Vitamin D] 1,000 unit PO DAILY 10/02/17 [History] Ferrous Sulfate [Iron] 325 mg PO DAILY 10/02/17 [History] Insulin Glargine,Hum.rec.anlog [Lantus Solostar] 4 unit SQ HS 10/02/17 [History] Metoprolol Tartrate 50 mg PO BID 10/02/17 [History] NIFEdipine [Nifedipine ER] 30 mg PO DAILY 10/02/17 [History] OxyCODONE/APAP 7.5/325 [Percocet 7.5/325 MG] 1 tab PO Q6HR PRN 10/02/17 [History ] Pantoprazole Sodium 40 mg PO DAILY 10/02/17 [History] Trazodone HCl 100 mg PO HS 10/02/17 [History] Aspirin [Aspirin EC] 650 mg PO TID #30 tablet. 10/04/17 [Rx] Colchicine [Colcrys] 0.6 mg PO BID #20 tablet 10/04/17 [Rx] Allergies/Adverse Reactions: 3 Allergy/AdvReac Type Severity Reaction Status Date / Time No Known Allergies Allergy Verified 10/03/17 14:49 Date of admission: 10/02/17 20:46 Primary care physician: Reji Diaz, Consults: 10/03/17 07:40 Consult to Cardiology [CONS] Routine Comment: Consulting Provider: Cardiology Madelyn Reason for Consult: pericarditis Time Notified: 07:40 Call Completed: Yes Consult to Nephrology [CONS] Routine Consulting Provider: [facility] Spcjayyt ISIDRA Reason for Consult: hemodialysis Time Notified: 07:41 Call Completed: Yes 10/04/17 07:42 Consult to Nephrology [CONS] Routine Consulting Provider: Kidney Madelyn/LUCILLE/OWEN/MATTIE Reason for Consult: HD Call Completed: Yes 10/04/17 10:00 Consult to Dialysis [CONS] ONCE Discharging clinician: Edy Antonio Anticipated date of discharge: 10/04/17 - Constitutional Vitals: Temp Pulse Resp BP Pulse Ox 97.5 F L 72 20 120/62 96 10/04/17 10:40 10/04/17 10:40 10/04/17 10:40 10/04/17 10:40 10/04/17 10:40 General appearance: Present: A&O X 3, pleasant, no acute distress - Head Head exam: Present: atraumatic, normocephalic - Eye Eye exam: Present: PERRL, conjuntiva pink, sclera anicteric Pupils: Present: PERRL - Neck Neck exam general surgery: Present: supple, trachea midline. Absent: lymphadenopathy - Respiratory Respiratory exam: Present: CTAB. Absent: accessory muscle use, rales, rhonchi, wheezes - Cardiovascular Cardiovascular exam: Present: RRR, +S1, +S2. Absent: diastolic murmur, gallop, rubs, systolic murmur - GI/Abdominal GI/Abdominal exam: Present: normal bowel sounds, soft, no peritoneal signs. Absent: distended, tenderness - Extremities Exam Extremities exam: Present: warm, radial pulses palpable and symmetrical. Absent : calf tenderness, cyanotic, pedal edema - Neurological Exam Neurological exam: Present: alert, CN II-XII intact, oriented X3, no focal deficits. Absent: pronater drift, facial droop, speech deficit - Skin Skin exam: Present: dry, intact - Patient Status Disposition: Home, Self-Care Condition: Good Functional capacity at discharge: uses cane/walker Overall status at discharge: patient is back to baseline - Discharge Instructions Follow Up With: Reji Diaz DO [Primary Care Provider] - - Diet and Activity Activity: resume usual activities as tolerated Diet: low salt diet, other (renal)
[2017-10-04] MEDS ORDERED: 0.9 % Sodium Chloride 1,000 ML ONE (13:10)
[2017-10-04] MEDS: NIFEdipine XL (24 HR) 30 MG TAB.ER.24 PO SCH (13:47)
[2017-10-04 19:04] VITALS: BP 151/66
[2017-10-04] MEDS ORDERED: Insulin DETEMIR 100 UNIT/ML X5UNITS SQ SCH (21:00)
== END 2017-10-04 18:49 | disposition home or self-care (01) ==
LOC: 2ANU 15:24 → EMEROO 15:24 → SUATTDRO 20:46 → 2ANU 20:57
PROVIDERS: ADMIT Internal Medicine; ATTEND Internal Medicine

== ENCOUNTER 2020-09-08 16:38 | Observation (INO) ==
[2020-09-08 17:36] LABS: Basophils % 0.2 %; Hemoglobin 11.2 g/dL (12.9-16.9); Segmented Neutrophils % 89.3 %
[2020-09-08 17:38] LABS: Hematocrit 35.4 % (37.5-50.1); Immature Granulocytes % 0.7 % (0-4); Immature Platelets 6.1 % (1.1-6.1); Lymphocytes # 0.4 K/mcL (0.6-4.6); Lymphocytes % 7.4 %; Mean Corpuscular HGB Conc 31.6 g/dL (31.6-35.5); Mean Corpuscular Hemoglobin 31.2 pg (28.0-33.3); Mean Corpuscular Volume 98.6 fL (83.0-100.0); Mean Platelet Volume 12.6 fL (9.4-12.4); Monocytes # 0.1 K/mcL (0.0-1.3); Monocytes % 2.4 %; Red Blood Count 3.59 M/mcL (4.19-5.50); Red Cell Distribution Width 15.4 % (11.5-14.5); White Blood Count 5.9 K/mcL (4.3-11.1)
[2020-09-08 17:53] LABS: Neutrophils # 5.3 K/mcL (1.6-8.9); Platelet Count 54 K/mcL (140-400)
[2020-09-08 17:57] LABS: Calcium 9.3 mg/dL (8.6-10.3); Potassium 6.1 mEq/L (3.5-5.1)
[2020-09-08] MEDS ORDERED: Insulin Human Regular 10 UNIT in 0.9 % Sodium Chloride 10 ML IV ONE ×2 (18:39→18:46)
[2020-09-08] MEDS ORDERED: *HR* Dextrose 50 % in Water (Vial) 50 ML VIAL IVP ONE (18:39)
[2020-09-08] MEDS ORDERED: Albuterol 2.5 MG/3 ML NEBULIZER IH ONE (18:39)
[2020-09-08] MEDS ORDERED: SODIUM ZIRCONIUM CYCLOSILICATE 5 GM POWD.PACK PO ONE (19:00)
[2020-09-08] MEDS ORDERED: Naloxone 0.4 MG/ML INJ IVP PRN (20:10)
[2020-09-08] MEDS ORDERED: Acetaminophen 325 MG TABLET PO PRN (20:10)
[2020-09-08] MEDS ORDERED: Ondansetron 4 MG/2 ML VIAL IVP PRN (20:10)
[2020-09-08] MEDS ORDERED: D5% in Water 1,000 ML IVC PRN (20:46)
[2020-09-08] MEDS ORDERED: *HR* Dextrose 50 % in Water (Vial) 50 ML VIAL IVP PRN (20:46)
[2020-09-08] MEDS ORDERED: Dextrose Gel 15 GM/37.5 ML TUBE PO PRN ×2 (20:46)
[2020-09-08] MEDS: 0.9 % Sodium Chloride 1,000 ML IVC SCH (20:54)
[2020-09-08 22:18] LABS: Calcium 9.1 mg/dL (8.6-10.3); Potassium 5.5 mEq/L (3.5-5.1)
[2020-09-08] MEDS ORDERED: cloNIDine HCL 0.1 MG TABLET PO PRN (22:30)
[2020-09-08] MEDS: traZODone 50 MG TABLET PO SCH (23:39)
[2020-09-08] MEDS: Gabapentin 300 MG CAPSULE PO SCH (23:39)
[2020-09-09 02:56] LABS: Hemoglobin 10.5 g/dL (12.9-16.9)
[2020-09-09 02:58] LABS: Hematocrit 33.7 % (37.5-50.1); Immature Platelets 6.8 % (1.1-6.1); Mean Corpuscular HGB Conc 31.2 g/dL (31.6-35.5); Mean Corpuscular Hemoglobin 30.5 pg (28.0-33.3); Mean Platelet Volume 12.4 fL (9.4-12.4); Red Blood Count 3.44 M/mcL (4.19-5.50); Red Cell Distribution Width 15.6 % (11.5-14.5); White Blood Count 5.2 K/mcL (4.3-11.1)
[2020-09-09 03:12] LABS: Potassium 5.6 mEq/L (3.5-5.1)
[2020-09-09] MEDS ORDERED: SODIUM ZIRCONIUM CYCLOSILICATE 5 GM POWD.PACK PO ONE (05:26)
[2020-09-09] MEDS ORDERED: *HR* OxyCODONE/APAP 10/325 TABLET PO PRN (08:12)
[2020-09-09] MEDS ORDERED: Sulfamethoxazole/Trimeth SS 1 TAB PO SCH (09:00)
[2020-09-09] MEDS: Insulin LISPRO 300 UNITS/3 ML VIAL SUBQ SCH ×3 (09:36→21:33)
[2020-09-09] MEDS: Insulin DETEMIR 100 UNIT/ML X5UNITS SUBQ SCH ×2 (09:37→21:41)
[2020-09-09] MEDS: Renal Vitamin 1 CAP CAPSULE PO SCH (09:38)
[2020-09-09] MEDS: Cyanocobalamin (B-12) 1,000 MCG TABLET PO SCH (09:38)
[2020-09-09] MEDS: Magnesium Oxide 400 MG TABLET PO SCH ×2 (09:38→21:41)
[2020-09-09] MEDS: Mycophenolate Sodium (DR) 180 MG TABLET.DR PO SCH ×2 (09:38→21:41)
[2020-09-09] MEDS: Folic Acid 1 MG TABLET PO SCH (09:38)
[2020-09-09] MEDS: carvediloL 6.25 MG TABLET PO SCH ×2 (09:38→15:45)
[2020-09-09] MEDS: Gabapentin 300 MG CAPSULE PO SCH ×3 (09:38→21:41)
[2020-09-09] MEDS: predniSONE 5 MG TABLET PO SCH (09:39)
[2020-09-09] MEDS: Apixaban 5 MG TABLET PO SCH ×2 (09:39→21:41)
[2020-09-09] MEDS: 0.9 % Sodium Chloride 1,000 ML IVC SCH (09:53)
[2020-09-09] MEDS: VALGANCICLOVIR HCL 450 MG PO SCH (10:42)
[2020-09-09] MEDS: *HR* OxyCODONE/APAP 10/325 TABLET PO PRN ×2 (15:44→21:51)
[2020-09-09] MEDS: traZODone 50 MG TABLET PO SCH (21:41)
[2020-09-10] MEDS: 0.9 % Sodium Chloride 1,000 ML IVC SCH (00:07)
[2020-09-10 02:17] LABS: Bilirubin,Urine Negative (Negative); Blood,Urine Negative (Negative); Clarity,Urine Clear (Clear); Color,Urine Light-Yellow (Yellow); Glucose,Urine (UA) Normal (Normal); Ketones,Urine Negative (Negative); Leukocyte Esterase,Urine Negative (Negative); Nitrite,Urine Negative (Negative); PH,Urine 6.5 pH Units (5.0-8.0); Protein,Urine Negative (Neg-Trace); Urobilinogen,Urine Normal (Normal)
[2020-09-10] MEDS: *HR* OxyCODONE/APAP 10/325 TABLET PO PRN (06:05)
[2020-09-10] MEDS: Insulin LISPRO 300 UNITS/3 ML VIAL SUBQ SCH (07:13)
[2020-09-10 07:29] LABS: Hemoglobin 11.3 g/dL (12.9-16.9); Immature Granulocytes % 1.1 % (0-4)
[2020-09-10 07:32] LABS: Basophils % 0.2 %; Hematocrit 37.6 % (37.5-50.1); Immature Platelets 4.9 % (1.1-6.1); Lymphocytes % 21.8 %; Mean Corpuscular HGB Conc 30.1 g/dL (31.6-35.5); Mean Corpuscular Hemoglobin 30.5 pg (28.0-33.3); Mean Corpuscular Volume 101.6 fL (83.0-100.0); Mean Platelet Volume 12.6 fL (9.4-12.4); Monocytes # 0.2 K/mcL (0.0-1.3); Monocytes % 3.7 %; Neutrophils # 3.4 K/mcL (1.6-8.9); Red Cell Distribution Width 15.6 % (11.5-14.5); Segmented Neutrophils % 73.2 %; White Blood Count 4.6 K/mcL (4.3-11.1)
[2020-09-10 07:37] LABS: Platelet Count 56 K/mcL (140-400)
[2020-09-10 07:39] VITALS: BP 169/62
[2020-09-10 07:48] LABS: Calcium 8.8 mg/dL (8.6-10.3); Potassium 4.8 mEq/L (3.5-5.1)
[2020-09-10 07:50] LABS: % Iron Saturation 26 % (20-55); Iron 69 mcg/dL (65-175); Transferrin 187 mg/dL (203-362)
[2020-09-10] MEDS: carvediloL 6.25 MG TABLET PO SCH (08:30)
[2020-09-10] MEDS: Magnesium Oxide 400 MG TABLET PO SCH (08:31)
[2020-09-10] MEDS: Renal Vitamin 1 CAP CAPSULE PO SCH (08:31)
[2020-09-10] MEDS: Mycophenolate Sodium (DR) 180 MG TABLET.DR PO SCH (08:31)
[2020-09-10] MEDS: Folic Acid 1 MG TABLET PO SCH (08:31)
[2020-09-10] MEDS: Cyanocobalamin (B-12) 1,000 MCG TABLET PO SCH (08:31)
[2020-09-10] MEDS: Gabapentin 300 MG CAPSULE PO SCH (08:31)
[2020-09-10] MEDS: Apixaban 5 MG TABLET PO SCH (08:31)
[2020-09-10] MEDS: predniSONE 5 MG TABLET PO SCH (08:31)
[2020-09-10] MEDS: VALGANCICLOVIR HCL 450 MG PO SCH (08:32)
[2020-09-10] MEDS ORDERED: SODIUM ZIRCONIUM CYCLOSILICATE 5 GM POWD.PACK PO SCH (09:00)
[2020-09-10 11:39] LABS: Vitamin B12 343 pg/mL (250-1100)
[2020-09-15 21:14] LABS: Vitamin D 25 Hydroxy 29 ng/mL (30-80)
== END 2020-09-10 13:10 | disposition home health service (06) ==
LOC: EMEROOARM 16:38 → 3BNU 16:38
PROVIDERS: ADMIT Internal Medicine; ATTEND Internal Medicine

== ENCOUNTER 2021-03-22 10:41 | Inpatient (IN) ==
[2021-03-22] MEDS ORDERED: Isovue-370 500 ML BOTTLE IVP ONE (11:10)
[2021-03-22] MEDS ORDERED: Ondansetron 4 MG/2 ML VIAL IVP ONE (11:11)
[2021-03-22] MEDS ORDERED: Acetaminophen 650 MG RECTAL SUPP RC ONE (11:39)
[2021-03-22 12:48] LABS: Immature Granulocytes % 0.6 % (0-4)
[2021-03-22 12:50] LABS: Monocytes % 6.7 %
[2021-03-22 12:52] LABS: Basophils % 0.3 %; Eosinophils % 0.3 %; Hematocrit 36.8 % (37.5-50.1); Hemoglobin 11.2 g/dL (12.9-16.9); Immature Platelets 5.5 % (1.1-6.1); Lymphocytes # 0.4 K/mcL (0.6-4.6); Lymphocytes % 12.5 %; Mean Corpuscular HGB Conc 30.4 g/dL (31.6-35.5); Mean Corpuscular Hemoglobin 28.3 pg (28.0-33.3); Mean Corpuscular Volume 92.9 fL (83.0-100.0); Mean Platelet Volume 11.8 fL (9.4-12.4); Monocytes # 0.2 K/mcL (0.0-1.3); Neutrophils # 2.7 K/mcL (1.6-8.9); Red Blood Count 3.96 M/mcL (4.19-5.50); Red Cell Distribution Width 14.9 % (11.5-14.5); Segmented Neutrophils % 79.6 %; White Blood Count 3.4 K/mcL (4.3-11.1)
[2021-03-22 12:55] LABS: INR 1.8; Prothrombin Time 19.6 Seconds (9.4-12.1)
[2021-03-22 12:59] LABS: Platelet Count 59 K/mcL (140-400)
[2021-03-22 13:01] LABS: Amphetamine Screen,Urine Negative ng/mL (Cutoff=1000); Barbiturate Screen,Urine Negative ng/mL (Cutoff=200); Benzodiazepines Screen,Urine Negative ng/mL (Cutoff=200); Cannabinoid Screen,Urine Negative ng/mL (Cutoff = 50); Cocaine Screen,Urine Negative ng/mL (Cutoff= 300); Opiate Screen,Urine Positive ng/mL (Cutoff=300); Phencyclidine Screen,Urine Negative ng/mL (Cutoff=25)
[2021-03-22 13:09] LABS: Bilirubin,Urine Negative (Negative); Blood,Urine Large (Negative); Clarity,Urine Clear (Clear); Color,Urine Yellow (Yellow); Glucose,Urine (UA) Normal (Normal); Hyaline Casts,Urine Few per lpf (None Seen); Ketones,Urine Negative (Negative); Leukocyte Esterase,Urine Moderate (Negative); Mucus,Urine Few per lpf (None-Few); Nitrite,Urine Negative (Negative); PH,Urine 5.5 pH Units (5.0-8.0); Protein,Urine 50 mg/dL (Neg-Trace); RBC,Urine TNTC per hpf (0-3); Specific Gravity,Urine 1.024 (1.010-1.025); Urobilinogen,Urine Normal (Normal)
[2021-03-22 13:13] LABS: BUN/Creatinine Ratio 21 (6-26); Blood Urea Nitrogen 48 mg/dL (8-23); Calcium 7.8 mg/dL (8.6-10.3); Carbon Dioxide 23 mEq/L (23-29); Chloride 105 mEq/L (98-107); Ethanol < 10 mg/dL (Less than 10); Glucose 85 mg/dL (70-105); Lipase 12 Units/L (11-82); Osmolality,Calculated 300 (280-300); Sodium 139 mEq/L (136-145); Troponin I 0.06 ng/mL (< 0.04); eGFR For African Americans 34 (> 60); eGFR For Non-African Americans 28 (> 60)
[2021-03-22] MEDS ORDERED: Piperacillin/Tazobactam 3.375 GM in 0.9 % Sodium Chloride Mini Bag 100 ML IVPB ONE (13:27)
[2021-03-22 13:30] LABS: Adenovirus DETECTED (Not Detect); Coronavirus 229E Not Detected (Not Detect); Coronavirus HKU1 Not Detected (Not Detect); Coronavirus NL63 Not Detected (Not Detect); Coronavirus OC43 Not Detected (Not Detect); Human Metapneumovirus Not Detected (Not Detect); SARS-CoV-2 DETECTED (Not Detect)
[2021-03-22 13:31] LABS: Bordetella Pertussis Not Detected (Not Detect); Chlamydophila pneumoniae Not Detected (Not Detect); Human Rhinovirus/Enterovirus Not Detected (Not Detect); Influenza A Subtype 2009 H1 Not Detected (Not Detect); Influenza B Not Detected (Not Detect); Mycoplasma pneumoniae Not Detected (Not Detect); Parainfluenza Virus 1 Not Detected (Not Detect); Parainfluenza Virus 2 Not Detected (Not Detect); Parainfluenza Virus 3 Not Detected (Not Detect); Parainfluenza Virus 4 Not Detected (Not Detect); Respiratory Syncytial Virus Not Detected (Not Detect)
[2021-03-22] MEDS ORDERED: *HR* FentaNYL (PF) 1,000 MCG/20 ML VIAL ONE ×2 (13:38→18:52)
[2021-03-22] MEDS ORDERED: 0.9 % Sodium Chloride 1,000 ML ONE (13:48)
[2021-03-22] MEDS ORDERED: *HR* EPINEPHrine 100 MCG/10 ML SYRINGE IVP ONE (13:48)
[2021-03-22] MEDS: FentaNYL (PF) 1,000 MCG/100 ML IV.SOLN IVC SCH (13:55)
[2021-03-22] MEDS ORDERED: Norepinephrine 4 MG/254 ML IV.SOLN IVC SCH (15:00)
[2021-03-22] MEDS ORDERED: 0.9 % Sodium Chloride 1,000 ML IVC ONE (15:00)
[2021-03-22 18:12] LABS: ABG Base Excess -3 mEq/L (-2 to 3); ABG Chloride 108 mEq/L (98-107); ABG Glucose 107 mg/dL (60-95); ABG HCO3 22 mEq/L (21-27); ABG Ionized Calcium 1.01 mmol/L (1.15-1.35); ABG Oxygen Saturation 100 % (95-98); ABG PCO2 35 mmHg (35-45); ABG PH 7.41 pH Units (7.32-7.45); ABG PO2 241 mmHg (85-104); ABG TCO2 23 mEq/L (20-26); Blood Gas Modality ASSIST CONTROL; Blood Gas VT 475 cc
[2021-03-22] MEDS ORDERED: Doxycycline 100 MG in 0.9 % Sodium Chloride Mini Bag 100 ML IVPB SCH ×2 (18:33→22:00)
[2021-03-22] MEDS ORDERED: MetroNIDAZOLE 500 MG/100 ML 500 MG/100 ML BAG IVPB SCH (18:33)
[2021-03-22] MEDS ORDERED: Artificial Tears SOLN 15 ML BOTTLE BOTH EYES PRN (18:33)
[2021-03-22] MEDS ORDERED: Acetaminophen 325 MG TABLET PO PRN ×2 (18:33→19:24)
[2021-03-22] MEDS ORDERED: Naloxone 0.4 MG/ML INJ IVP PRN (18:33)
[2021-03-22] MEDS ORDERED: Pantoprazole 40 MG VIAL IVP SCH ×2 (18:45→22:00)
[2021-03-22] MEDS ORDERED: D5% in Water 1,000 ML IVC PRN (18:47)
[2021-03-22] MEDS ORDERED: *HR* Dextrose 50 % in Water (Syg) 50 ML SYRINGE IVP PRN (18:47)
[2021-03-22] MEDS ORDERED: Dextrose Gel 15 GM/37.5 ML TUBE PO PRN ×2 (18:47)
[2021-03-22] MEDS ORDERED: [UNRECOGNIZED DRUG - OTHER] IVPB ONE (19:24)
[2021-03-22] MEDS ORDERED: methylPREDNISolone 125 MG/2 ML VIAL IVP PRN (19:24)
[2021-03-22] MEDS ORDERED: Ondansetron 4 MG/2 ML VIAL IVP PRN (19:24)
[2021-03-22] MEDS ORDERED: EPINEPHrine 1 MG/ML VIAL IM PRN (19:24)
[2021-03-22] MEDS ORDERED: Casirivimab/Imdevima 600/600MG 1,200 MG in 0.9 % Sodium Chloride 50 ML IVPB ONE (20:00)
[2021-03-22 21:00] LABS: ABG Base Excess -4 mEq/L (-2 to 3); ABG HCO3 20 mEq/L (21-27); ABG Oxygen Saturation 96 % (95-98); ABG PCO2 32 mmHg (35-45); ABG PO2 82 mmHg (85-104); ABG TCO2 21 mEq/L (20-26); Blood Gas VT 480 cc
[2021-03-22] MEDS: Chlorhexidine Rinse 15 ML MOUTHWASH MM SCH (21:41)
[2021-03-22] MEDS: Artificial Tears SOLN 15 ML BOTTLE BOTH EYES SCH ×2 (21:42→23:16)
[2021-03-22] MEDS: Insulin LISPRO 300 UNITS/3 ML VIAL SUBQ SCH (21:50)
[2021-03-22] MEDS ORDERED: Budesonide/Formoterol 160/4.5 1 PUFF INH IH SCH (22:00)
[2021-03-23] MEDS ORDERED: *HR* LORazepam 2 MG/ML VIAL IVP PRN (00:49)
[2021-03-23] MEDS ORDERED: Atropine 1% Opth Drops 100 DROP/5 ML BOTTLE SL PRN (00:49)
[2021-03-23] MEDS ORDERED: Morphine Sulfate 2 MG/ML SYRINGE IVP PRN (00:49)
[2021-03-23] MEDS: Insulin LISPRO 300 UNITS/3 ML VIAL SUBQ SCH (00:54)
[2021-03-23] MEDS ORDERED: D5% in Water 1,000 ML IVC PRN (01:05)
[2021-03-23] MEDS ORDERED: Dextrose Gel 15 GM/37.5 ML TUBE PO PRN ×2 (01:05)
[2021-03-23] MEDS ORDERED: *HR* Dextrose 50 % in Water (Syg) 50 ML SYRINGE IVP PRN (01:05)
[2021-03-23] MEDS ORDERED: Ondansetron 4 MG/2 ML VIAL IVP PRN (01:09)
[2021-03-23] MEDS ORDERED: Norepinephrine 4 MG/254 ML IV.SOLN IVC SCH (01:15)
[2021-03-23] MEDS ORDERED: Cefepime HCl 2,000 MG in Water for inj. (sterile) 10 ML IVP SCH ×2 (02:00→04:00)
[2021-03-23 02:12] LABS: Basophils % 0.1 %
[2021-03-23 02:13] LABS: Hematocrit 33.6 % (37.5-50.1); Hemoglobin 10.3 g/dL (12.9-16.9); Immature Granulocytes % 2.1 % (0-4); Immature Platelets 6.9 % (1.1-6.1); Lymphocytes # 0.6 K/mcL (0.6-4.6); Lymphocytes % 4.1 %; Mean Corpuscular HGB Conc 30.7 g/dL (31.6-35.5); Mean Corpuscular Hemoglobin 29.2 pg (28.0-33.3); Mean Corpuscular Volume 95.2 fL (83.0-100.0); Monocytes # 0.3 K/mcL (0.0-1.3); Red Blood Count 3.53 M/mcL (4.19-5.50); Segmented Neutrophils % 91.7 %; White Blood Count 14.2 K/mcL (4.3-11.1)
[2021-03-23 02:22] LABS: INR 1.4
[2021-03-23 02:24] LABS: Platelet Count 69 K/mcL (140-400)
[2021-03-23 02:56] LABS: Albumin 3.4 g/dL (3.5-5.7); Albumin/Globulin Ratio 1.3 (1.1-2.2); Bilirubin,Direct 0.5 mg/dL (0.0-0.2); Bilirubin,Indirect 0.8 mg/dL (0.0-1.0); Bilirubin,Total 1.3 mg/dL (0.3-1.0); Calcium 7.5 mg/dL (8.6-10.3); Globulin 2.6 g/dL (2.4-3.5); Magnesium 1.7 mg/dL (1.6-2.6); Platelet Estimate Decreased (Normal); Potassium 5.3 mEq/L (3.5-5.1)
[2021-03-23 04:41] LABS: ABG Base Excess -8 mEq/L (-2 to 3); ABG HCO3 18 mEq/L (21-27); ABG Oxygen Saturation 96 % (95-98); ABG PCO2 36 mmHg (35-45); ABG PO2 89 mmHg (85-104); ABG TCO2 19 mEq/L (20-26); Blood Gas VT 480 cc
[2021-03-23] MEDS: FentaNYL (PF) 1,000 MCG/100 ML IV.SOLN IVC SCH ×2 (04:41→10:44)
[2021-03-23] MEDS ORDERED: *HR* Heparin 5,000 UNIT/ML VIAL SQ SCH (06:00)
[2021-03-23] MEDS ORDERED: Doxycycline 100 MG in 0.9 % Sodium Chloride Mini Bag 100 ML IVPB SCH (06:00)
[2021-03-23] MEDS ORDERED: Insulin LISPRO 300 UNITS/3 ML VIAL SUBQ SCH (06:00)
[2021-03-23] MEDS ORDERED: Albumin 25% 25gram/100mL 25 GM/100 ML IV.SOLN IVPB ONE (07:04)
[2021-03-23] MEDS: Artificial Tears SOLN 15 ML BOTTLE BOTH EYES SCH ×2 (07:49→08:09)
[2021-03-23] MEDS ORDERED: MetroNIDAZOLE 500 MG/100 ML 500 MG/100 ML BAG IVPB SCH ×2 (08:00)
[2021-03-23] MEDS: Chlorhexidine Rinse 15 ML MOUTHWASH MM SCH (08:05)
[2021-03-23] MEDS ORDERED: Pantoprazole 40 MG VIAL IVP SCH (09:00)
[2021-03-23] MEDS ORDERED: Dexamethasone Sodium Phos/PF 10 MG/ML VIAL IVP SCH (09:00)
[2021-03-23 09:35] VITALS: TEMP 98.9
[2021-03-23] MEDS ORDERED: Budesonide/Formoterol 160/4.5 1 PUFF INH IH SCH (10:00)
[2021-03-23 13:48] VITALS: BP 129/54; PULSE 46
[2021-03-23 13:49] VITALS: O2SAT 98
[2021-03-23] MEDS ORDERED: Cefepime HCl 1,000 MG in Water for inj. (sterile) 10 ML IVP SCH (18:00)
== END 2021-03-23 14:30 | disposition short-term general hospital (02) | DRG 208 ==
LOC: EMEROOARM 10:41 → 2NNU 18:59 → ICNU 03-23 08:38
PROVIDERS: ADMIT Pediatrics; ATTEND Pediatrics